=== PATIENT | female | born 1970 | race Caucasian/White ===

== ENCOUNTER → 2018-01-08 | Day surgery (SDC) | payer OTHER ==
[~2018-01-08] MED LIST: GLUCAGON 1 MG/ML VIAL IM STA
[2018-01-08 10:05] VITALS: BP 106/67; PULSE 60; RESP 16; TEMP 98.3
--- NOTE | 2018-01-09 08:31 | MR ---
EXAMINATION TYPE: MR Enterography DATE OF EXAM: 01/08/2018 COMPARISON: None HISTORY: noninfective gastroenteritis and colitis or chronic diarrhea per order. History of cervical cancer diagnosed 1995 with chemotherapy presents with left-sided pain per patient. CONTRAST: Standard multiplanar, multisequence imaging of the abdomen is performed without and with IV contrast, patient is injected with 7.5 mL intravenous Gadavist gadolinium contrast. Oral Volumen and Water was given as per enterography protocol. FINDINGS: BOWEL: There is fairly satisfactory distention of the stomach and duodenal sweep without suspicious w all thickening or nodular enhancement. There is satisfactory fluid-filled distention of small bowel l oops with normal appearance of jejunal loops in the left abdomen and normal appearance of ileal loops in the right abdomen. No suspicious wall thickening or mural inflammatory changes identified. Termin al ileum is not greatly distended. No asymmetric wall thickening is identified. Mild diffuse wall pro minence is noted without suspicious enhancement. Fecal material is seen in nondistended colon. Fairly satisfactory distention is present. There is mild wall thickening at level of sigmoid colon in the l eft pelvis, I favor this is product of poor distention as there is no suspicious asymmetric thickenin g or worrisome mural enhancement. A mild colitis cannot be entirely excluded at this level. Occasiona l diverticula in the sigmoid colon is present. OTHER: Lung bases are grossly clear. The liver, gallbladder, spleen, pancreas, and right adrenal glan d are normal in size. Slight thickening to left adrenal gland favors benign hyperplasia. No suspiciou s renal masses or hydronephrosis is evident. There is no concerning abdominal fluid collection. Uterus is not identified and felt surgically absen t or markedly atrophic. No suspicious abdominal adenopathy is seen. Visualized osseous structures are intact. IMPRESSION: Few diverticula in the sigmoid colon. Perhaps mild colitis at level of sigmoid colon though favor pro duct of nondistention. Correlate clinically. No marked acute enteritis or colitis is seen.
== END ==
LOC: RADMRIMAIN 09:04
PROVIDERS: ATTEND Internal Medicine Gastroenterology
DX: K57.30 Diverticulosis of large intestine without perforation or abscess without bleeding (principal); K52.9 Noninfective gastroenteritis and colitis, unspecified; K56.1 Intussusception; M19.90 Unspecified osteoarthritis, unspecified site; K21.9 Gastro-esophageal reflux disease without esophagitis; I10 Essential (primary) hypertension; F17.210 Nicotine dependence, cigarettes, uncomplicated; Z79.891 Long term (current) use of opiate analgesic; Z79.899 Other long term (current) drug therapy; Z90.710 Acquired absence of both cervix and uterus
CPT/HCPCS: 96372; 72197; 74183; J1610; A9581